=== PATIENT | male | born 1965 | race Caucasian/White ===

== ENCOUNTER 2023-10-29 11:06 | Day surgery (SDC) | payer OTHER ==
[~2023-10-29] VITALS: Ht 177.8 cm; Wt 81.6 kg
[2023-10-29] MEDS ORDERED: fentaNYL citrate 0.05 MG/ML VIAL ONE (12:36)
[2023-10-29] MEDS: fentaNYL citrate 0.05 MG/ML VIAL IVP ONE (13:07)
[2023-10-29] MEDS: LIDOCAINE 2% 100 MG/5 ML UJET TP ONE (13:12)
== END 2023-10-29 14:15 | disposition home or self-care (01) ==
LOC: MDS 11:06 → MMU 11:08 → MDS 14:15
PROVIDERS: ATTEND Internal Medicine Gastroenterology
DX: Z12.11 Encounter for screening for malignant neoplasm of colon (principal); K57.30 Diverticulosis of large intestine without perforation or abscess without bleeding; E11.9 Type 2 diabetes mellitus without complications; Z79.899 Other long term (current) drug therapy; Z98.890 Other specified postprocedural states
CPT/HCPCS: 45378; 82948; J3010